=== PATIENT | male | born 1950 | race Caucasian/White ===

== ENCOUNTER 2017-07-14 07:44 | Inpatient (IN) | payer MEDICARE, OTHER ==
[2017-07-14] MEDS ORDERED: methylPREDNISolone SOD SUCCI 125 MG/2 ML VIAL IV STA (08:00)
[2017-07-14] MEDS ORDERED: IPRATROPIUM-ALBUTEROL 3 ML NEB INHALATION STA (08:00)
--- NOTE | 2017-07-14 08:03 | ED ---
General Adult HPI - General Chief complaint: Shortness of Breath Stated complaint: SOB Time Seen by Provider: 07/14/17 07:57 Source: patient, RN notes reviewed Mode of arrival: ambulatory Limitations: no limitations - History of Present Illness Initial comments: Patient is a pleasant 66-year-old male presenting to the emergency Department with difficulty breathing. Symptoms started a couple of days ago and are worse today. Patient does have occasional cough with white sputum. No fever. Patient has history of similar symptoms previously associated with chronic bronchitis. No chest pain. No fever. - Related Data Home Medications Medication Instructions Recorded Confirmed Albuterol Sulfate [Proair Hfa] 2 puff INHALATION RT-QID PRN 07/14/17 07/14/17 Allergies Allergy/AdvReac Type Severity Reaction Status Date / Time bee venom protein (honey bee) Allergy Anaphylaxis Verified 07/14/17 09:39 strawberry Allergy Anaphylaxis Verified 07/14/17 09:39 Review of Systems ROS Statement: Those systems with pertinent positive or pertinent negative responses have been documented in the HPI. ROS Other: All systems not noted in ROS Statement are negative. Constitutional: Denies: fever Eyes: Denies: eye pain ENT: Denies: ear pain Respiratory: Reports: cough, dyspnea Cardiovascular: Denies: chest pain Endocrine: Denies: fatigue Gastrointestinal: Denies: abdominal pain Genitourinary: Denies: urgency Musculoskeletal: Denies: back pain Skin: Denies: rash Neurological: Denies: weakness Past Medical History Past Medical History: COPD History of Any Multi-Drug Resistant Organisms: None Reported Past Surgical History: No Surgical Hx Reported Past Psychological History: No Psychological Hx Reported Smoking Status: Never smoker Past Alcohol Use History: Rare Past Drug Use History: None Reported General Exam Limitations: no limitations General appearance: alert Head exam: Present: atraumatic Eye exam: Present: normal appearance, PERRL ENT exam: Present: normal oropharynx Neck exam: Present: normal inspection Respiratory exam: Present: respiratory distress (Mild), wheezes Cardiovascular Exam: Present: regular rate, normal rhythm GI/Abdominal exam: Present: soft. Absent: tenderness Extremities exam: Present: normal inspection Neurological exam: Present: alert Psychiatric exam: Present: normal affect, normal mood Skin exam: Present: normal color Course Vital Signs 07/14/17 07/14/17 07/14/17 07:45 08:38 08:45 Temperature 97.5 F L Pulse Rate 100 98 96 Respiratory 23 Rate Blood Pressure 171/79 O2 Sat by Pulse 93 L Oximetry 07/14/17 09:00 Temperature Pulse Rate 90 Respiratory 24 Rate Blood Pressure 135/85 O2 Sat by Pulse 96 Oximetry EKG Findings - EKG Comments: EKG Findings:: Sinus rhythm at 98. MN 156. QRS 86. QT 350. QTC 446. Normal axis. Normal QRS. Normal ST-T. Medical Decision Making - Medical Decision Making Patient was reexamined and improved. Patient has significant wheezing still and tachypnea. Patient was updated on results, specifically including pulmonary nodule and plan. Case discussed with Dr. Tenorio, who will admit for [facility] for hospital call. - Lab Data Result diagrams: 07/14/17 08:15 07/14/17 08:15 Lab Results 07/14/17 07/14/17 Range/Units 08:15 08:15 WBC 6.6 (3.8-10.6) k/uL RBC 4.91 (4.30-5.90) m/uL Hgb 14.9 (13.0-17.5) gm/dL Hct 44.9 (39.0-53.0) % MCV 91.6 (80.0-100.0) fL MCH 30.4 (25.0-35.0) pg MCHC 33.2 (31.0-37.0) g/dL RDW 12.9 (11.5-15.5) % Plt Count 277 (150-450) k/uL Neutrophils % 44 % Lymphocytes % 32 % Monocytes % 7 % Eosinophils % 13 % Basophils % 1 % Neutrophils # 2.9 (1.3-7.7) k/uL Lymphocytes # 2.1 (1.0-4.8) k/uL Monocytes # 0.5 (0-1.0) k/uL Eosinophils # 0.8 H (0-0.7) k/uL Basophils # 0.1 (0-0.2) k/uL Sodium 142 (137-145) mmol/L Potassium 4.2 (3.5-5.1) mmol/L Chloride 108 H (98-107) mmol/L Carbon Dioxide 25 (22-30) mmol/L Anion Gap 9 mmol/L BUN 18 (9-20) mg/dL Creatinine 0.90 (0.66-1.25) mg/dL Est GFR (MDRD) Af Amer >60 (>60 ml/min/1.73 sqM) Est GFR (MDRD) Non-Af >60 (>60 ml/min/1.73 sqM) Glucose 100 H (74-99) mg/dL Calcium 9.1 (8.4-10.2) mg/dL Total Bilirubin 0.4 (0.2-1.3) mg/dL AST 26 (17-59) U/L ALT 36 (21-72) U/L Alkaline Phosphatase 54 (38-126) U/L Total Protein 7.3 (6.3-8.2) g/dL Albumin 4.1 (3.5-5.0) g/dL - Radiology Data Radiology results: image reviewed (Chest x-ray shows hyperinflation and left upper lobe pulmonary nodule) Disposition Clinical Impression: Acute exacerbation of chronic obstructive airways disease Disposition: ADMITTED IP TO THIS [facility] Referrals: Nonstaff,Physician [Primary Care Provider] - 1-2 days Decision Time: 09:41
[2017-07-14 08:33] LABS: Basophils # (A) 0.1 k/uL (0-0.2); Basophils % (A) 1 %; CH 31.7; CHCM 34.7; Eosinophils # (A) 0.8 k/uL (0-0.7); Eosinophils % (A) 13 %; HCT 44.9 % (39.0-53.0); HDW 2.44; HGB 14.9 gm/dL (13.0-17.5); Luc # (Auto) 0.23; Luc % (Auto) 3; Lymphocytes # (A) 2.1 k/uL (1.0-4.8); Lymphocytes % (A) 32 %; MCH 30.4 pg (25.0-35.0); MCHC 33.2 g/dL (31.0-37.0); MCV 91.6 fL (80.0-100.0); Mean Platelet Volume 7.3; Monocytes # (A) 0.5 k/uL (0-1.0); Monocytes % (A) 7 %; Neutrophils # (A) 2.9 k/uL (1.3-7.7); Neutrophils % (A) 44 %; RBC 4.91 m/uL (4.30-5.90); RDW 12.9 % (11.5-15.5); WBC 6.6 k/uL (3.8-10.6); WBC (Perox) 6.22
[2017-07-14 08:51] LABS: ALT 36 U/L (21-72); AST 26 U/L (17-59); Alkaline Phosphatase 54 U/L (38-126); Anion Gap 9 mmol/L; Blood Urea Nitrogen 18 mg/dL (9-20); Calcium 9.1 mg/dL (8.4-10.2); Carbon Dioxide 25 mmol/L (22-30); Chloride 108 mmol/L (98-107); Glucose 100 mg/dL (74-99); Non-African American GFR(MDRD) >60 (>60 ml/min/1.73 sqM); Potassium 4.2 mmol/L (3.5-5.1); Sodium 142 mmol/L (137-145); Total Bilirubin 0.4 mg/dL (0.2-1.3); Total Protein 7.3 g/dL (6.3-8.2)
--- NOTE | 2017-07-14 09:25 | XR ---
EXAMINATION TYPE: XR chest 2V DATE OF EXAM: 07/14/2017 COMPARISON: NONE TECHNIQUE: PA and lateral views submitted. HISTORY: Difficulty breathing FINDINGS: The lungs are clear and there is no pneumothorax, pleural effusion, or focal pneumonia. Hyperinflat ion suggests COPD. Vague 8 mm nodule in the left lower lobe. Hypertrophic and degenerative change of the spine. IMPRESSION: 1. No acute process. Correlate for COPD. There is an 8 mm left upper lobe pulmonary nodule which coul d be followed on short-term basis with CT scan.
[2017-07-14] MEDS ORDERED: IPRATROPIUM-ALBUTEROL 3 ML NEB INHALATION PRN (10:14)
[2017-07-14] MEDS ORDERED: ALPRAZolam 0.25 MG TAB PO PRN (10:15)
[2017-07-14] MEDS ORDERED: ACETAMINOPHEN TAB 325 MG TAB PO PRN (10:15)
[2017-07-14] MEDS ORDERED: NALOXONE 0.4 MG/ML 1 ML VIAL IV PRN (10:15)
[2017-07-14] MEDS ORDERED: DOCUSATE 100 MG CAP PO PRN (10:15)
[2017-07-14] MEDS ORDERED: MELATONIN 3 MG TABLET PO PRN (10:15)
[2017-07-14] MEDS ORDERED: HYDROcodone/APAP 5-325MG 1 EACH TAB PO PRN (10:15)
[2017-07-14] MEDS ORDERED: CALCIUM CARBONATE 500 MG CHEWABLE PO PRN (10:15)
[2017-07-14] MEDS ORDERED: ONDANSETRON 4 MG/2 ML VIAL IVP PRN (10:15)
[2017-07-14 10:56] VITALS: BMI 23.0
[2017-07-14 11:51] LABS: Glucose,Whole Blood 128 mg/dL (75-99)
[2017-07-14] MEDS: IPRATROPIUM-ALBUTEROL 3 ML NEB INHALATION SCH ×3 (11:55→20:45)
[2017-07-14] MEDS: methylPREDNISolone SOD SUCCI 125 MG/2 ML VIAL IV SCH ×2 (15:19→23:19)
--- NOTE | 2017-07-14 15:48 | P.HPIM ---
History of Present Illness H&P Date: 07/14/17 Chief Complaint: shortness of breath 66-year-old male with no significant past medical history except for exercise- induced asthma. Patient presents to the hospital due to worsening shortness of breath 1 day duration. He reports the symptoms started 4 days ago after a trip from [place] which took 3[place]4 hours, he came in here to help his daughter moving into a new place and was helping her around carrying boxes from a storage place. Patient reports for many years now since he was young he usually used an albuterol inhaler when he knows that he can exercise heavily as that usually cause some shortness of breath. This time he was using his inhaler without achieving a lot of benefit and symptoms just got worse and worse over the base and he decided to come to the hospital. This was not associated with any chest pain per patient report, he denies any fevers chills or sick contacts, he reports an associated cough nonproductive however he is also reporting runny nose of whitish secretions that he believes is due to ALLERGIES. He denies any facial pain or headaches denies any hemoptysis or any bleeding, he denies any leg swelling or leg pain.. He denies any history of blood clots, he denies any history of COPD diagnosis, denies any history of intubation or any frequent hospitalization. Patient reports that he might have visited the ER once or twice in his life for breathing issues. 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 Currently patient seen in the observation unit he feels almost back to his baseline denies any chest pain, reports that his shortness of breath has improved significantly however he still on nasal on oxygen through nasal cannula. He reports that his symptoms has improved since he has received breathing treatments and steroids in the ED. Review of Systems Constitutional: Patient reports no fever, no chills, no night sweating, no significant weight changes Eyes: Patient reports no visual changes, no eye pain ENT: Patient reports no ear pain, no rhinorrhea, no sore throat Cardiovascular: Patient reports shortness of breath and dyspnea as mentioned in HPI, denies any orthopnea or paroxysmal nocturnal dyspnea Respiratory:Patient reports patient reports coughing shortness of breath and wheezing Gastrointestinal: Patient reports no diarrhea, no constipation, no nausea no vomiting, no abdominal pain Genitourinary: Patient reports no dysuria, no hematuria, no changes in urinary habits, no genital lesions Musculoskeletal: Patient reports no muscle pain, no joint pain Psychiatric: Patient reports no changes in mood or memory, no suicidal ideation , no anxiety Endocrine: Patient reports no heat intolerance, no cold intolerance, no excessive thirst, no polyuria Neurological: Patient reports no focal neurologic deficits, no weakness, no numbness, no tingling Hem/Lymphatic: Patient reports no bleeding tendency, no bruising, no swollen lymph glands Allergic/Immun: Patient reports no recent allergic reactions Skin: Patient reports no rashes, no pruritis, no ulcers Past Medical History Past Medical History: COPD Additional Past Medical History / Comment(s): Exercise-induced asthma History of Any Multi-Drug Resistant Organisms: None Reported Past Surgical History: No Surgical Hx Reported Additional Past Surgical History / Comment(s): Collarbone fracture when he was a child Past Psychological History: No Psychological Hx Reported Smoking Status: Never smoker Past Alcohol Use History: Rare Past Drug Use History: None Reported - Past Family History Mother History Unknown: Yes Additional Family Medical History / Comment(s): Heart disease runs in the family Father Family Medical History: Myocardial Infarction ([place]) Medications and Allergies Home Medications and Allergies Comment(s): Medications reviewed Home Medications Medication Instructions Recorded Confirmed Type Albuterol Sulfate [Proair Hfa] 2 puff INHALATION RT-QID PRN 07/14/17 07/14/17 History Allergies Allergy/AdvReac Type Severity Reaction Status Date / Time bee venom protein (honey bee) Allergy Anaphylaxis Verified 07/14/17 09:39 strawberry Allergy Anaphylaxis Verified 07/14/17 09:39 Physical Exam Vitals: Vital Signs Temp Pulse Pulse Resp BP BP Pulse Ox 07/14/17 12:13 84 07/14/17 11:55 76 07/14/17 10:49 97.6 F 93 16 138/87 96 07/14/17 10:00 98.0 F 93 18 130/80 96 07/14/17 09:00 90 24 135/85 96 07/14/17 08:45 96 07/14/17 08:38 98 07/14/17 07:45 97.5 F L 100 23 171/79 93 L Intake and Output 07/14/17 07/14/17 07/14/17 06:59 14:59 22:59 Other: Weight 57.153 kg Patient Weight 07/15/17 06:59 Weight 57.153 kg Constitutional: No acute distress, conversant, pleasant Eyes: Anicteric sclerae, moist conjunctiva, no lid-lag Pupils equal round reactive to light ENMT: NC/AT Oropharynx clear, no erythema, exudates Neck: Supple, FROM, no masses, or JVD No carotid bruits No thyromegaly Lungs: Good breath sounds bilaterally, there is slight end expiratory wheezes scattered Clear to percussion Patient is using accessory muscles of respiration , currently on oxygen through nasal cannula Cardiovascular: Heart regular in rate and rhythm, No murmurs, gallops, or rubs No peripheral edema Abdominal: Soft Nontender, no guarding, rebound or rigidity Abdomen moving with respiration Normoactive bowel sounds No hepatomegaly, No splenomegaly No palpable mass No abdominal wall hernia noted Skin: Normal temperature, tone, texture, turgor No induration No subcutaneous nodules No rash, lesions No ulcers Extremities: No digital cyanosis No clubbing Pedal pulses intact and symmetrical Radial pulses intact and symmetrical No calf tenderness Psychiatric: Alert and oriented to person, place and time Appropriate affect fair judgement Neuro Muscles Strength 5/5 in all 4 extremities Sensation to light touch grossly present throughout Cranial nerves II-XII grossly intact No focal sensory deficits Lymphatics: no palpable cervical or supraclavicular , or inguinal lymph nodes Results Results: Reviewed labs CBC & Chem 7: 07/14/17 08:15 07/14/17 08:15 Labs: Abnormal Lab Results - Last 24 Hours (Table) 07/14/17 07/14/17 07/14/17 Range/Units 08:15 08:15 11:37 Eosinophils # 0.8 H (0-0.7) k/uL Chloride 108 H (98-107) mmol/L Glucose 100 H (74-99) mg/dL POC Glucose (mg/dL) 128 H (75-99) mg/dL Thrombosis Risk Factor Assmnt - Choose All That Apply Any of the Below Risk Factors Present?: Yes Each Factor Represents 1 point: Abnormal pulmonary function (COPD) Other Risk Factors: Yes Each Risk Factor Represents 2 Points: Age 61-74 years Other congenital or acquired thrombophilia - If yes, enter type in comment: No Thrombosis Risk Factor Assessment Total Risk Factor Score: 3 Thrombosis Risk Factor Assessment Level: Moderate Risk Assessment and Plan (1) Acute exacerbation of chronic obstructive airways disease Status: Acute Plan: Patient has no clear diagnosis of COPD in the past however he was told that he has bronchitis from previous exposures to dust and chemicals during his service at the [employer] [facility] [employer] and straight and being a [employer] member involving scuba diving This acute exacerbation could be possibly due to exposure to dust while moving boxes to his daughter's new place, and excessive activity. Patient will be started on COPD pathway including bronchodilators and systemic steroids Patient will also be on antibiotic with doxycycline I recommended to the patient to follow up outpatient to have official pulmonary function test to rule out obstructive versus restrictive disease and results will dictate further workup Due to patient's history of traveling recently from [place] I would like to perform a d-dimer testing [place] positive I would perform a CT angiogram chest to rule out PE Continue with the breathing treatments around the clock and oxygen through nasal cannula, will reevaluate patient in the morning if he improves significantly then we'll consider discharge home, will evaluate oxygen needs before discharge I will I will utilize heparin continuously for DVT prophylaxis I anticipate patient discharged within 24-48 hours Patient is full code Time with Patient: Greater than 30
[2017-07-14 16:35] LABS: Glucose,Whole Blood 132 mg/dL (75-99)
[2017-07-14] MEDS: HEPARIN SODIUM,PORCINE 5,000 UNIT/ML 1 ML VIAL SQ SCH ×2 (18:04→23:18)
[2017-07-14] MEDS: DOXYCYCLINE 50 MG CAP PO SCH (21:02)
[2017-07-14] MEDS: FAMOTIDINE 20 MG TAB PO SCH (21:03)
[2017-07-15] MEDS: IPRATROPIUM-ALBUTEROL 3 ML NEB INHALATION SCH ×4 (00:33→11:38)
[2017-07-15 02:58] VITALS: RESP 16
[2017-07-15 07:07] LABS: Glucose,Whole Blood 141 mg/dL (75-99)
[2017-07-15 07:41] LABS: Basophils % (A) 0 %; CH 31.7; CHCM 34.2; Eosinophils % (A) 0 %; HCT 44.5 % (39.0-53.0); HDW 2.37; HGB 14.7 gm/dL (13.0-17.5); Luc # (Auto) 0.04; Luc % (Auto) 0; Lymphocytes # (A) 0.8 k/uL (1.0-4.8); Lymphocytes % (A) 8 %; MCH 30.7 pg (25.0-35.0); MCV 93.1 fL (80.0-100.0); Mean Platelet Volume 7.3; Monocytes # (A) 0.3 k/uL (0-1.0); Monocytes % (A) 3 %; Neutrophils # (A) 8.8 k/uL (1.3-7.7); Neutrophils % (A) 88 %; RBC 4.79 m/uL (4.30-5.90); RDW 13.3 % (11.5-15.5); WBC 9.9 k/uL (3.8-10.6); WBC (Perox) 10.42
[2017-07-15 07:53] LABS: Anion Gap 13 mmol/L; Blood Urea Nitrogen 15 mg/dL (9-20); Calcium 9.4 mg/dL (8.4-10.2); Carbon Dioxide 23 mmol/L (22-30); Chloride 104 mmol/L (98-107); Glucose 145 mg/dL (74-99); Non-African American GFR(MDRD) >60 (>60 ml/min/1.73 sqM); Phosphorous 3.5 mg/dL (2.5-4.5); Potassium 4.7 mmol/L (3.5-5.1); Sodium 140 mmol/L (137-145)
[2017-07-15] MEDS: HEPARIN SODIUM,PORCINE 5,000 UNIT/ML 1 ML VIAL SQ SCH (08:49)
[2017-07-15] MEDS: FAMOTIDINE 20 MG TAB PO SCH (08:49)
[2017-07-15] MEDS: methylPREDNISolone SOD SUCCI 125 MG/2 ML VIAL IV SCH (08:49)
[2017-07-15] MEDS: DOXYCYCLINE 50 MG CAP PO SCH (08:49)
[2017-07-15 09:51] VITALS: BP 119/77; PULSE 110; TEMP 98.6
--- NOTE | 2017-07-15 09:56 | P.DS ---
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 Patient presented with worsening shortness of breath of 4 days' duration not responding to his albuterol inhalers he denied any chest pain but reported excessive wheezing and coughing nonproductive but with runny nose sometimes whitish secretions. He recently moved from [place] to [facility] at [address] to help his daughter moving, and he is exposed to dust from moving all the boxes and furniture, besides stringiness activity. When patient presented to the ED he was found to be wheezing and having shortness of breath however he improved with breathing treatments and was admitted for further care and monitoring. Patient reports that he's been told that he has bronchitis due to has prior exposures but he was never officially diagnosed continue to use albuterol inhaler as needed. He has never been intubated or admitted to the hospital for COPD exacerbation he had couple visits to the ED in the past for the same problem. Patient was started on DuoNeb nebulizers he showed improvement in his symptoms, patient was able to ambulate and walk around without oxygen and was able to maintain his oxygen saturation above 92%. Patient feels great today denies any chest pain or trouble breathing denies any leg pain denies any fevers chills or headache. He denies any shortness of breath today is eager to go home Constitutional: vital signs stable, Not in acute distress, pleasant, conversant Lungs: Good breath sounds bilaterally, slight expiratory wheezes were appreciated today, respiratory effort is normal no use of accessory muscles, percussion is unremarkable Cardiovascular: Regular rate and rhythm, no murmurs, no gallops, no rubs, no peripheral leg edema edema Gastrointestinal: Soft, no tenderness to palpation, bowel sounds positive Extremities: No calf muscle tenderness Psych: Alert, oriented to place, person and time Patient counseled to continue with Spiriva, long-acting beta agonists and steroids inhalers and to use the nebulizer when albuterol inhaler is not helpful. Avoid smoking and spoke exposure Patient is to consider further workup with his PCP including pulmonary function test We had an incidental finding of a lung nodule 8 mm in size, and recommended to the patient outpatient follow-up with CAT scan More than 35 minutes were spent discharging this patient, and more than 50% of the time was spent in counseling the patient and family and in coordinating care. I called the patient at 1751 on 07/15/2017 at [phone] to follow up on him, he reported that he feels great and voiced gratitude, I confirmed with him that he will need to follow up with his regular physician on doing a pulmonary function test and surveillance CT scan of the lungs to follow up on the left lung nodule of 8 mm in size.. he verbalized understanding Patient Condition at Discharge: Fair Plan - Discharge Summary New Discharge Prescriptions: New RX: Doxycycline [Vibramycin] 100 mg PO BID #8 cap RX: Famotidine [Pepcid] 20 mg PO BID #20 tab Fluticasone/Salmeterol [Advair 250-50 Diskus] 1 inhalation PO BID #1 inhaler RX: Ipratropium-Albuterol Nebulize [Duoneb 0.5 mg-3 mg/3 ml Soln] 3 ml INHALATION RT-Q4H PRN #20 neb PRN Reason: Shortness Of Breath RX: predniSONE 50 mg PO DAILY #5 tab Tiotropium 18 Mcg/Puff [Spiriva] 1 cap INHALATION DAILY #60 cap Continue RX: Albuterol Sulfate [Proair Hfa] 2 puff INHALATION RT-QID PRN PRN Reason: Shortness Of Breath Discharge Medication List Albuterol Sulfate [Proair Hfa] 2 puff INHALATION RT-QID PRN 07/14/17 [History] Doxycycline [Vibramycin] 100 mg PO BID #8 cap 07/15/17 [Rx] Famotidine [Pepcid] 20 mg PO BID #20 tab 07/15/17 [Rx] Fluticasone/Salmeterol [Advair 250-50 Diskus] 1 inhalation PO BID #1 inhaler [Rx] Ipratropium-Albuterol Nebulize [Duoneb 0.5 mg-3 mg/3 ml Soln] 3 ml INHALATION RT -Q4H PRN #20 neb 07/15/17 [Rx] Tiotropium 18 Mcg/Puff [Spiriva] 1 cap INHALATION DAILY #60 cap 07/15/17 [Rx] predniSONE 50 mg PO DAILY #5 tab 07/15/17 [Rx] Follow up Appointment(s)/Referral(s): Nonstaff,Physician [Primary Care Provider] - 1-2 days (Please call to make a follow up appointment with your primary care doctor.) Ambulatory/Diagnostic Orders: Ambulatory Miscellaneous Order [MISC.AMB] Location: Determined By Patient Patient Instructions/Handouts: How to Use a Dry-Powder Inhaler (DC), COPD ( Chronic Obstructive Pulmonary Disease) (DC), Pulmonary Nodules (DC) Activity/Diet/Wound Care/Special Instructions: REGULAR DIET ACTIVITY TOLERATED consider OP pulmonary functions testing, and surveillance CT scan to monitor the behavior of the lung nodule Discharge Disposition: HOME SELF-CARE
== END 2017-07-15 11:40 | disposition home or self-care (01) | DRG 192 ==
LOC: EC 07:44 → 3SUR 09:41
PROVIDERS: ADMIT Internal Medicine; ATTEND Internal Medicine
DX: J44.1 Chronic obstructive pulmonary disease with (acute) exacerbation (principal); J45.990 Exercise induced bronchospasm; Z57.5 Occupational exposure to toxic agents in other industries; R91.1 Solitary pulmonary nodule; Z79.899 Other long term (current) drug therapy; Z91.030 Bee allergy status; Z91.018 Allergy to other foods; Z82.49 Family history of ischemic heart disease and other diseases of the circulatory system
CPT/HCPCS: 36415; 71020; 80048; 80053; 83735; 84100; 85025; 85379; 93005; 94640; 94760